=== PATIENT | male | born 1995 ===

== ENCOUNTER 2020-11-19 06:00 | Day surgery (SDC) | payer OTHER ==
[2020-11-19] MEDS ORDERED: COLACE100 MG PO (10:08)
[2020-11-19] MEDS ORDERED: PERCOCET 5-3251 EACH PO (10:08)
== END 2020-11-19 13:40 | disposition home or self-care (01) ==
LOC: CIR.AMB 06:00
PROVIDERS: ATTEND Surgery
DX: K64.8 Other hemorrhoids (principal); Z20.822 Contact with and (suspected) exposure to COVID-19